=== PATIENT | male | born 1995 | race African-American/Black ===

== ENCOUNTER 2019-02-13 22:15 | Emergency (ER) | payer SELFPAY ==
[~2019-02-13] VITALS: Ht 177.8 cm; Wt 60.8 kg
[2019-02-13 22:24] VITALS: BP 133/82
--- NOTE | 2019-02-13 22:35 | NUR ---
Dr. Robles examining patient.
--- NOTE | 2019-02-13 22:40 | NUR ---
PT C/O RT SIDE CHEST PAIN X2 WEEKS. DENIES SWEATS AND NAUSEA. RR EVEN AND UNLABORED. SPEAKING EFFORTLESSLY IN FULL SENTENCES. NON TENDER TO PALP. NO CHANGE IN APPETITE. DENIES ABD PAIN. PT SITTING IN BED, RELAXED. MEDHX: DENIES ALLERGIES: DENIES
[2019-02-13] MEDS ORDERED: ASPIRIN 81 MG TAB.CHEW PO ONE (22:45)
[2019-02-13] MEDS ORDERED: KETOROLAC 30 MG/ML VIAL IVP ONE (22:45)
[2019-02-13] MEDS ORDERED: NACL 0.9% 1,000 ML IV ONE (22:45)
--- NOTE | 2019-02-13 22:46 | NUR ---
X-Ray at bedside.
[2019-02-13 23:05] LABS: BASOPHILS % (AUTO) 0.5 % (0.0-2.0); EOSINOPHILS # (AUTO) 0.1 K/uL (0-0.4); EOSINOPHILS % (AUTO) 1.9 % (0.0-4.0); HEMATOCRIT 43.5 % (36-52); HEMOGLOBIN 14.4 g/dL (12.0-18.0); LYMPHOCYTES # (AUTO) 2.3 K/uL (2.0-11.5); MEAN CORPUSCULAR HEMOGLOBIN 30 pg (27-31); MEAN CORPUSCULAR HGB CONC 33 g/dL (33-37); MEAN CORPUSCULAR VOLUME 91.6 fL (80-94); MONOCYTES # (AUTO) 0.5 K/uL (0.8-1.0); MONOCYTES % (AUTO) 8.6 % (1.7-9.3); NEUTROPHILS # (AUTO) 3.1 K/uL (1.8-7.7); PLATELET COUNT (AUTO) 168 K/uL (140-450); RED BLOOD CELL COUNT(AUTO) 4.75 MIL/uL (4.20-6.10); RED CELL DISTRIBUTION WIDTH 13.4 % (11.6-13.7)
[2019-02-13 23:16] LABS: PROTHROMBIN TIME 10.9 secs (10.8-13.4)
[2019-02-13 23:18] LABS: ALBUMIN 4.1 g/dL (3.4-5.0); ANION GAP 10.1 (8-16); CARBON DIOXIDE 29.6 mmol/L (21-32); CREATININE 1.1 mg/dL (0.7-1.3); POTASSIUM 3.7 mmol/L (3.5-5.1); TOTAL BILIRUBIN 0.5 mg/dL (0.0-1.0)
--- NOTE | 2019-02-13 23:39 | NUR ---
PT IN BED AT THIS TIME. VSS. MOTHER AT BEDSIDE.
--- NOTE | 2019-02-14 00:54 | NUR ---
PT ON PHONE WITH MOTHER AT BEDSIDE. VSS AT THIS TIME. NO FURTHER COMPLAINTS
[2019-02-14 01:12] VITALS: BP 133/82
--- NOTE | 2019-02-14 01:12 | NUR ---
Patient discharged with v/s stable. Written and verbal after care instructions given and explained. Patient verbalized understanding. Ambulatory with to home. All questions addressed prior to discharge. Advised to follow up with PMD. WITH MOTHER
== END 2019-02-14 01:12 | disposition home or self-care (01) ==
LOC: MED 22:15
DX: R07.89 Other chest pain (principal); R06.02 Shortness of breath; F12.90 Cannabis use, unspecified, uncomplicated
CPT/HCPCS: 36415; 71045; 80053; 84484; 85025; 85610; 85730; 96374; 99284; J1885; J7030; Q0092